=== PATIENT | female | born 1935 | race Caucasian/White ===

== ENCOUNTER 2021-08-14 09:52 | Inpatient (IN) | payer MEDICARE, OTHER ==
[~2021-08-14] VITALS: Ht 154.9 cm; Wt 70.3 kg
[2021-08-14 10:29] LABS: HEMOGLOBIN 11.6 gm/dl (12.3-15.3); RED BLOOD COUNT 3.79 M/UL (4.00-5.10); WHITE BLOOD COUNT 13.4 K/UL (4.5-11.0)
[2021-08-14 11:00] LABS: BUN/CREATININE RATIO 24 (0-10)
[2021-08-14] MEDS ORDERED: VITAMIN D210 MCG PO (14:18)
[2021-08-14] MEDS ORDERED: ASCORBIC ACID500 MG PO (14:18)
[2021-08-14] MEDS ORDERED: CARVEDILOL6.25 MG PO (14:18)
[2021-08-14] MEDS ORDERED: AMLODIPINE-BEN1 EAC1 PO (14:18)
[2021-08-14] MEDS ORDERED: ESCITALOPRAM OX10 MG PO (14:18)
[2021-08-14] MEDS ORDERED: VITAMIN B-121000 MCG PO (14:19)
[2021-08-15 02:16] LABS: HEMOGLOBIN 10.4 gm/dl (12.3-15.3); RED BLOOD COUNT 3.44 M/UL (4.00-5.10); WHITE BLOOD COUNT 10.6 K/UL (4.5-11.0)
[2021-08-16 01:31] LABS: HEMOGLOBIN 10.2 gm/dl (12.3-15.3); RED BLOOD COUNT 3.37 M/UL (4.00-5.10); WHITE BLOOD COUNT 10.6 K/UL (4.5-11.0)
[2021-08-17 02:31] LABS: RED BLOOD COUNT 3.3 M/UL (4.00-5.10); WHITE BLOOD COUNT 9.1 K/UL (4.5-11.0)
[2021-08-18 03:52] LABS: RED BLOOD COUNT 3.32 M/UL (4.00-5.10); WHITE BLOOD COUNT 8.5 K/UL (4.5-11.0)
[2021-08-19 15:24] LABS: HEMOGLOBIN 11.5 gm/dl (12.3-15.3); WHITE BLOOD COUNT 7.3 K/UL (4.5-11.0)
[2021-08-19 15:32] LABS: RED BLOOD COUNT 3.82 M/UL (4.00-5.10)
[2021-08-19 19:40] LABS: ADENOVIRUS F 40/41 Not Detected (Negative); ASTROVIRUS Not Detected (Negative); CAMPYLOBACTER Not Detected (Negative); CRYPTOSPORIDIUM Not Detected (Negative); E.COLI 0157 Not Detected (Negative); ENTAMOEBA HISTOLYTICA Not Detected (Negative); ENTEROAGGREGATIVE E.COLI (EAEC Not Detected (Negative); ENTEROPATHOGENIC E.COLI (EPEC) Not Detected (Negative); ENTEROTOXIGENIC E.COLI (ETEC) Not Detected (Negative); GIARDIA LAMBLIA Not Detected (Negative); PLESIOMONAS SHIGELLOIDES Not Detected (Negative); ROTOVIRUS A Not Detected (Negative); SALMONELLA Not Detected (Negative); SAPOVIRUS Not Detected (Negative); SHIG/ENTEROINVAS.ECOLI (EIEC) Not Detected (Negative); SHIGA-LIK TOX.PRO.E.COLI (STEC Not Detected (Negative); VIBRIO Not Detected (Negative); VIBRIO CHOLERAE Not Detected (Negative); YERSINIA ENTEROCOLITICA Not Detected (Negative)
[2021-08-20 06:24] LABS: HEMOGLOBIN 10.9 gm/dl (12.3-15.3); RED BLOOD COUNT 3.61 M/UL (4.00-5.10); WHITE BLOOD COUNT 5.9 K/UL (4.5-11.0)
[2021-08-20 09:46] LABS: NOROVIRUS GI/GII DETECTED (Negative)
[2021-08-21 06:55] LABS: HEMOGLOBIN 10.6 gm/dl (12.3-15.3); RED BLOOD COUNT 3.59 M/UL (4.00-5.10); WHITE BLOOD COUNT 6.7 K/UL (4.5-11.0)
[2021-08-21] MEDS ORDERED: CIPRO500 MG PO (13:56)
[2021-08-21] MEDS ORDERED: FLAGYL 250 MG250 MG PO (13:56)
--- NOTE | 2021-08-21 16:08 | NUR ---
REPORT CALLED TO ALINA WITH [facility]
== END 2021-08-21 16:28 | disposition home health service (06) | DRG 392 ==
LOC: ER1 09:52 → CDU 13:18 → MED SURG 4 13:18
PROVIDERS: Internal Medicine; Physician Assistant; Physician Assistant Medical; Student in an Organized Health Care Education/Training Program; ADMIT Internal Medicine
DX: A08.11 Acute gastroenteropathy due to Norwalk agent (principal); K57.20 Diverticulitis of large intestine with perforation and abscess without bleeding; K76.9 Liver disease, unspecified; E83.42 Hypomagnesemia; M25.561 Pain in right knee; G89.29 Other chronic pain; R53.81 Other malaise; T36.0X5A Adverse effect of penicillins, initial encounter; D64.9 Anemia, unspecified; I10 Essential (primary) hypertension; Z85.038 Personal history of other malignant neoplasm of large intestine; Z90.710 Acquired absence of both cervix and uterus; Z90.49 Acquired absence of other specified parts of digestive tract; Z98.890 Other specified postprocedural states; Z88.5 Allergy status to narcotic agent; Z91.040 Latex allergy status; Z82.49 Family history of ischemic heart disease and other diseases of the circulatory system; Z83.3 Family history of diabetes mellitus; Z79.899 Other long term (current) drug therapy
CPT/HCPCS: 36415; 73562; 74018; 80048; 80053; 81001; 82550; 82553; 83690; 83735; 84484; 85025; 85027; 87449; 87507; 96374; 97110; 97110-GP-CQ; 97116; 97116-GP-CQ; 97161; 97166; 97530-GP-CQ; 99285; J1650; J2185; J2543; J3475; Q9967

== ENCOUNTER 2021-08-30 09:27 | Emergency (ER) | payer MEDICARE, OTHER ==
[~2021-08-30 09:27] MED LIST: AMLODIPINE-BEN1 EAC1 PO; ASCORBIC ACID500 MG PO; CARVEDILOL6.25 MG PO; CIPRO500 MG PO; ESCITALOPRAM OX10 MG PO; FLAGYL 250 MG250 MG PO; VITAMIN B-121000 MCG PO; VITAMIN D210 MCG PO
[2021-08-30 10:32] LABS: HEMOGLOBIN 11.7 gm/dl (12.3-15.3); RED BLOOD COUNT 3.9 M/UL (4.00-5.10); WHITE BLOOD COUNT 7.6 K/UL (4.5-11.0)
[2021-08-30] MEDS ORDERED: AMOX TR-K CLV1 EAC4 PO (12:55)
== END 2021-08-30 14:14 | disposition home or self-care (01) ==
LOC: ER1 09:27
PROVIDERS: Physician Assistant
DX: K57.20 Diverticulitis of large intestine with perforation and abscess without bleeding (principal); M17.11 Unilateral primary osteoarthritis, right knee; I10 Essential (primary) hypertension; Z88.5 Allergy status to narcotic agent; Z91.040 Latex allergy status
CPT/HCPCS: 73564; 80053; 83605; 83690; 85025; 99284; Q9967